=== PATIENT | female | born 1980 | race Caucasian/White ===

== ENCOUNTER 2018-06-11 09:16 | Emergency (ER) | payer SELFPAY ==
[2018-06-11 09:36] VITALS: BP 109/74; PULSE 75; TEMP 97.7; BMI 29.7
[2018-06-11] MEDS ORDERED: ONDANSETRON *ODT* 4 MG TABLET SL ONE (11:57)
[2018-06-11] MEDS ORDERED: ACETAMINOPHEN 325 MG TABLET (FP) PO ONE (11:57)
[2018-06-11] MEDS ORDERED: MECLIZINE HCL 25 MG TABLET (FP) PO ONE (11:58)
[2018-06-11 12:22] LABS: HCG,QUALITATIVE URINE Negative
[2018-06-11 12:24] LABS: BASO % 0.9 % (0-2.0); EOS % 2.7 % (0-4.5); HEMATOCRIT 40.6 % (32.4-45.2); HEMOGLOBIN 14.1 GM/dL (10.7-15.3); LYMPH % 29.7 % (8-40); MCH 30.9 pg (25.7-33.7); MCHC 34.7 g/dl (32.0-36.0); MEAN CELL VOLUME 88.9 fl (80-96); MEAN PLT VOLUME 8.3 fl (7.5-11.1); MONO % 6.9 % (3.8-10.2); NEUT % 59.8 % (42.8-82.8); PLATELET COUNT 253 K/MM3 (134-434); RBC 4.57 M/mm3 (3.60-5.2); RDW 12.3 % (11.6-15.6); WHITE BLOOD COUNT 5.7 K/mm3 (4.0-10.0)
[2018-06-11 12:31] LABS: URINE APPEARANCE CLEAR; URINE BILIRUBIN NEGATIVE (<2.0 mg/dL); URINE COLOR LTYELLOW; URINE GLUCOSE (UA) NEGATIVE (NEGATIVE); URINE KETONE NEGATIVE (NEGATIVE); URINE LEUK ESTERASE 1+ (NEGATIVE); URINE NITRITE NEGATIVE (NEGATIVE); URINE PROTEIN NEGATIVE (NEGATIVE); URINE UROBILINOGEN NEGATIVE mg/dL (0.2-1.0)
--- NOTE | 2018-06-11 12:38 | EKG ---
Test Reason : Blood Pressure : / mmHG Vent. Rate : 073 BPM Atrial Rate : 073 BPM P-R Int : 158 ms QRS Dur : 084 ms QT Int : 388 ms P-R-T Axes : 024 052 043 degrees QTc Int : 427 ms NORMAL SINUS RHYTHM NORMAL ECG NO PREVIOUS ECGS AVAILABLE Confirmed by DAVID FLYNN, RAMAN ([id number]) on 06/11/2018 12:38:23 PM Referred By: Confirmed By:RAMAN HERNANDEZ MD
[2018-06-11 12:41] LABS: EPI CELLS RARE /HPF (FEW); URINE MUCUS RARE
[2018-06-11 12:54] LABS: ALK PHOS 55 U/L (45-117); ANION GAP 5 MMOL/L (8-16); BILIRUBIN,TOTAL 0.4 mg/dL (0.2-1); BLOOD UREA NITROGEN 13 mg/dL (7-18); CALCIUM 8.6 mg/dL (8.5-10.1); CHLORIDE 106 mmol/L (98-107); CO2 28 mmol/L (21-32); CREATININE 0.6 mg/dL (0.55-1.3); GLUCOSE,RANDOM 87 mg/dL (74-106); POTASSIUM 4.4 mmol/L (3.5-5.1); SGOT/AST 14 U/L (15-37); SGPT/ALT 23 U/L (13-61); SODIUM 139 mmol/L (136-145); TOT PROT 7.5 g/dl (6.4-8.2)
--- NOTE | 2018-06-11 15:27 | PDOC ---
Documentation entered by Alexandra Barbosa SCRIBE, acting as scribe for Sagrario Styles MD. History of Present Illness - General Chief Complaint: Syncope/Near Syncope Stated Complaint: DIZZYNESS / NAUSEA History Source: Patient Exam Limitations: No Limitations - History of Present Illness Initial Comments: 06/11/18 12:22 The patient is a 38 year old female, with no significant past medical history, who presents to the emergency department with sudden onset of nausea, headache, and dizziness upon waking up at 7AM this morning. The patient states she woke up with a tension like headache to the top of her head which resolved after taking Aleve. She states she became very sweaty and dizzy described as room spinning. She states she was able to sit herself on the floor and drink water before passing out. She states she also has been experiencing ear fullness after getting over bronchitis recently. She states her doctor told her last month her ears looks full but not infected. The patient denies chest pain, shortness of breath. The patient denies fever, chills, vomit, diarrhea and constipation. The patient denies dysuria, frequency , urgency and hematuria. Allergies: amoxicillin Past History - Past Medical History Allergies/Adverse Reactions: Allergies Allergy/AdvReac Type Severity Reaction Status Date / Time amoxicillin Allergy Severe Verified 06/11/18 09:31 kiwi Allergy Severe Verified 06/11/18 09:31 NECTARINES Allergy Severe Uncoded 06/11/18 09:31 Home Medications: Ambulatory Orders NK [No Known Home Medication] 06/11/18 Asthma: No Cancer: No Cardiac Disorders: No COPD: No Diabetes: No HTN: No Seizures: No Thyroid Disease: No - Suicide/Smoking/Psychosocial Hx Smoking History: Never smoked Have you smoked in the past 12 months: No Hx Alcohol Use: No Drug/Substance Use Hx: No Hx Substance Use Treatment: No *Physical Exam - Vital Signs Last Vital Signs Temp Pulse Resp BP Pulse Ox 97.7 F 75 18 109/74 99 06/11/18 09:34 06/11/18 09:34 06/11/18 09:34 06/11/18 09:34 06/11/18 09:34 Moderate Sedation - Procedure Monitoring Vital Signs: Procedure Monitoring Vital Signs Temperature 97.7 F 06/11/18 09:34 Pulse Rate 75 06/11/18 09:34 Respiratory Rate 18 06/11/18 09:34 Blood Pressure 109/74 06/11/18 09:34 O2 Sat by Pulse Oximetry (%) 99 06/11/18 09:34 ED Treatment Course - LABORATORY CBC & Chemistry Diagram: 06/11/18 12:10 06/11/18 12:10 - ADDITIONAL ORDERS Additional order review: Laboratory Results 06/11/18 06/11/18 12:10 11:50 Sodium 139 Potassium 4.4 Chloride 106 Carbon Dioxide 28 Anion Gap 5 L BUN 13 Creatinine 0.6 Creat Clearance w eGFR > 60 Random Glucose 87 Calcium 8.6 Total Bilirubin 0.4 AST 14 L ALT 23 Alkaline Phosphatase 55 Total Protein 7.5 Albumin 4.0 Urine Color Ltyellow Urine Appearance Clear Urine pH 6.0 Ur Specific [place] 1.010 Urine Protein Negative Urine Glucose (UA) Negative Urine Ketones Negative Urine Blood 1+ H Urine Nitrite Negative Urine Bilirubin Negative Urine Urobilinogen Negative Ur Leukocyte Esterase 1+ H Urine WBC (Auto) 2 Urine RBC (Auto) 1 Ur Epithelial Cells Rare Urine Mucus Rare Urine HCG, Qual Negative 06/11/18 12:10 RBC 4.57 MCV 88.9 MCHC 34.7 RDW 12.3 D MPV 8.3 Neutrophils % 59.8 Lymphocytes % 29.7 D Monocytes % 6.9 Eosinophils % 2.7 Basophils % 0.9 Medical Decision Making - Medical Decision Making 06/11/18 15:25 pt refusing to receive ivf. left prior to results states she has to leave. encouraged to have her partner take her child home while waiting for test results. 06/11/18 15:26 labs reviewed and unremarkable. *DC/Admit/Observation/Transfer Diagnosis at time of Disposition: Eloped from emergency department, Positional vertigo - Discharge Dispostion Disposition: [facility]P - Referrals Referrals: Rosanne Zimmerman MD [Primary Care Provider] - - Patient Instructions - Post Discharge Activity Sagrario Styles MD: This documentation has been prepared by the Familia worrell Amanda, SCRIBE, under my direction and personally reviewed by me in its entirety. I confirm that the documentation accurately reflects all work, treatment, procedures, and medical decision making performed by me.
== END 2018-06-11 12:24 | disposition left against medical advice (07) ==
LOC: JER 09:16
DX: R11.2 Nausea with vomiting, unspecified (principal)
CPT/HCPCS: 36415; 80053; 81003; 81015; 84703; 85025; 93005; 93010; 99281-25

== ENCOUNTER 2022-02-28 01:29 | Emergency (ER) | payer SELFPAY ==
[2022-02-28 01:48] VITALS: BP 113/80; PULSE 93; RESP 20; TEMP 98.9; BMI 26.6
[2022-02-28] MEDS ORDERED: SODIUM CHLORIDE FOR INHALATION 3 ML VIAL.NEB IH ONE (02:02)
[2022-02-28] MEDS ORDERED: DEXAMETHASONE SOD PHOSPHATE 10 MG/1 ML VIAL IM ONE (03:03)
[2022-02-28] MEDS ORDERED: ALBUTEROL SO4 2.5/IPRATROPIUM 0.5 INH SOL 3 ML VIAL.NEB. NEB SCH (03:15)
[2022-02-28] MEDS ORDERED: DEXAMETHASONE SOD PHOSPHATE 10 MG/1 ML VIAL ONE (03:18)
[2022-02-28] MEDS ORDERED: ALBUTEROL SO4 2.5/IPRATROPIUM 0.5 INH SOL 3 ML VIAL.NEB. NEB ONE (03:18)
[2022-02-28] MEDS ORDERED: ONDANSETRON 4 MG TABLET PO ONE (04:04)
== END 2022-02-28 04:01 | disposition home or self-care (01) ==
LOC: JER 01:29
PROC: 3E0233Z Introduction of Anti-inflammatory into Muscle, Percutaneous Approach (ICD-10-PCS; principal; 2022-02-28)
DX: J09.X2 Influenza due to identified novel influenza A virus with other respiratory manifestations (principal); R05.1 Acute cough; R06.02 Shortness of breath
CPT/HCPCS: 0241U-QW; 71046-TC-FY; 99284-25; J1100